=== PATIENT | female | born 1960 | race African-American/Black ===

== ENCOUNTER 2017-10-29 21:07 | Emergency (ER) | payer MEDICARE, MEDICAID ==
[~2017-10-29] VITALS: Ht 172.7 cm; Wt 127.0 kg
[2017-10-30] MEDS ORDERED: KETOROLAC 60MG/2ML VIAL IM ONE
[2017-10-30 00:08] VITALS: BP 131/70
== END 2017-10-30 00:51 | disposition home or self-care (01) ==
LOC: ER 23:01
DX: M17.12 Unilateral primary osteoarthritis, left knee (principal); M72.2 Plantar fascial fibromatosis; G89.29 Other chronic pain; I10 Essential (primary) hypertension; E11.9 Type 2 diabetes mellitus without complications; J45.909 Unspecified asthma, uncomplicated
CPT/HCPCS: 96372; 99283; J1885

== ENCOUNTER 2019-03-06 07:43 | Inpatient (IN) | payer MEDICARE, MEDICAID ==
[~2019-03-06] VITALS: Ht 172.7 cm; Wt 127.9 kg
[2019-03-06 09:09] LABS: BASOPHILS % 0.6 % (0.0-2.0); EOSINOPHILS % 1.1 % (0.0-5.0); HEMATOCRIT. 29.5 % (36.0-48.0); HEMOGLOBIN. 9.4 g/dL (12.0-16.0); LYMPHOCYTES % 37.7 % (20.0-50.0); MEAN CORPUSCULAR HEMOGLOBIN 25.1 pg (28.0-32.0); MEAN CORPUSCULAR VOLUME 78.6 fL (81.0-99.0); MEAN PLATELET VOLUME 6.6 fl (7.4-10.4); MONOCYTES % 9.7 % (2.0-8.0); NEUTROPHILS % 50.9 % (40.0-76.0); PLATELET 467 x1000/uL (130-400); RED BLOOD CELL COUNT 3.76 mill/uL (4.2-5.4); RED CELL DISTRIBUTION WIDTH 18.7 % (11.6-14.6)
[2019-03-06 09:18] LABS: CHLORIDE 109 mEq/L (98-107); PROTHROMBIN TIME 10.7 sec (9.6-11.0)
[2019-03-06] MEDS ORDERED: BACL-141 PO (09:27)
[2019-03-06] MEDS ORDERED: HYDR-4009 MT (09:27)
[2019-03-06] MEDS ORDERED: vitamin d2 (09:27)
[2019-03-06] MEDS ORDERED: PANT40TA4 PO (09:27)
[2019-03-06] MEDS ORDERED: GABA-531 MT (09:27)
[2019-03-06] MEDS ORDERED: SITA50TA3 PO (09:27)
[2019-03-06] MEDS ORDERED: ALBU6.7H9 INH (09:27)
[2019-03-06] MEDS ORDERED: METH150T PO (09:27)
[2019-03-06] MEDS ORDERED: FLUT1AER IH (09:27)
[2019-03-06] MEDS ORDERED: APIX5TAB PO (09:27)
[2019-03-06] MEDS ORDERED: LIDO15CR11 TP (09:27)
[2019-03-06] MEDS ORDERED: ATOR10TA69 MT (09:27)
[2019-03-06] MEDS ORDERED: TELM1TAB32 MT (09:27)
[2019-03-06] MEDS ORDERED: ALPR2TAB97 PO (09:27)
[2019-03-06] MEDS ORDERED: ERGO2000 PO (09:27)
[2019-03-06] MEDS ORDERED: MAGNESIUM/ALUMINUM HYDROXIDE/SIMETHICONE 30ML UDC PO PRN (12:30)
[2019-03-06] MEDS ORDERED: IPRATROPIUM/ALBUTEROL 0.5-3(2.5)MG/3ML NEB INH PRN (12:30)
[2019-03-06] MEDS ORDERED: NA PHOS,M-B/NA PHOS,DI-BA ENEMA 118ML PR PRN (12:30)
[2019-03-06] MEDS ORDERED: ACETAMINOPHEN 325MG TABLET PO PRN (12:30)
[2019-03-06] MEDS ORDERED: ONDANSETRON HCL 4MG/2ML INJ IV PRN (12:30)
[2019-03-06] MEDS ORDERED: DIPHENHYDRAMINE 50MG/ML VIAL IV PRN (12:30)
[2019-03-06] MEDS ORDERED: CLONIDINE 0.1MG TABLET PO PRN (12:30)
[2019-03-06] MEDS ORDERED: DOCUSATE SODIUM 100MG CAPSULE PO PRN (12:30)
[2019-03-06 13:10] VITALS: BP 129/79
[2019-03-06 14:30] VITALS: BP 129/79
[2019-03-06 16:00] VITALS: BP 113/56
[2019-03-06 16:02] LABS: TOTAL IRON BINDING CAPACITY 353 ug/dL (250-450)
[2019-03-06] MEDS: OMEPRAZOLE 20MG CAPSULE EXTENDED RELEASE PO SCH ×2 (16:10→20:21)
[2019-03-06] MEDS: MORPHINE SULFATE 2 MG/ML CPJ (NOT FOR IM USE) IV PRN ×2 (16:19→20:23)
[2019-03-06] MEDS ORDERED: PNEUMOCOCCAL 23-VAL P-SAC VAC 0.5 ML IM ONE (17:15)
[2019-03-06 20:38] LABS: HEMATOCRIT 28.2 % (36.0-48.0); HEMOGLOBIN 8.9 g/dL (12.0-16.0)
[2019-03-06 20:43] LABS: CHLORIDE 107 mEq/L (98-107)
[2019-03-07] VITALS: BP 93/52
[2019-03-07] MEDS ORDERED: DEXTROSE 50% WATER 50ML SYRINGE IV PRN (00:30)
[2019-03-07] MEDS: MORPHINE SULFATE 2 MG/ML CPJ (NOT FOR IM USE) IV PRN ×3 (00:39→11:08)
[2019-03-07 00:55] LABS: HEMATOCRIT 26.9 % (36.0-48.0); HEMOGLOBIN 8.6 g/dL (12.0-16.0)
[2019-03-07 06:41] LABS: BASOPHILS % 0.4 % (0.0-2.0); EOSINOPHILS % 1.7 % (0.0-5.0); HEMATOCRIT. 28.5 % (36.0-48.0); HEMOGLOBIN. 9.2 g/dL (12.0-16.0); MEAN CORPUSCULAR HEMOGLOBIN 25.3 pg (28.0-32.0); MEAN CORPUSCULAR VOLUME 78.3 fL (81.0-99.0); MEAN PLATELET VOLUME 6.8 fl (7.4-10.4); MONOCYTES % 7.2 % (2.0-8.0); NEUTROPHILS % 43.7 % (40.0-76.0); PLATELET 476 x1000/uL (130-400); RED BLOOD CELL COUNT 3.64 mill/uL (4.2-5.4); RED CELL DISTRIBUTION WIDTH 18.5 % (11.6-14.6)
[2019-03-07 07:00] LABS: CHLORIDE 108 mEq/L (98-107)
[2019-03-07 07:34] LABS: LDL CHOLESTEROL 84 mg/dL (5-100)
[2019-03-07 07:35] LABS: HDL CHOLESTEROL 33 mg/dL (40-59)
[2019-03-07 07:36] LABS: T4 FREE 1.06 ng/dL (0.76-1.46)
[2019-03-07] MEDS: INSULIN LISPRO 100 UNITS/ML SUBCUT SCH ×4 (07:49→21:00)
[2019-03-07] MEDS: BLOOD SUGAR DIAGNOSTIC STRIP TEST SCH ×4 (07:49→21:14)
[2019-03-07 08:00] VITALS: BP 109/62
[2019-03-07] MEDS: OMEPRAZOLE 20MG CAPSULE EXTENDED RELEASE PO SCH ×2 (09:00→21:14)
[2019-03-07] MEDS ORDERED: SORBITOL 70% SOLN 30ML PO SCH ×3 (10:00→20:00)
[2019-03-07 11:05] VITALS: BP 110/67
[2019-03-07] MEDS: BISACODYL 5MG TABLET PO SCH ×2 (11:06→14:24)
[2019-03-07] MEDS: METOCLOPRAMIDE HCL 10MG/2ML VIAL IV SCH ×2 (11:07→14:23)
[2019-03-07 12:00] VITALS: BP 110/66
[2019-03-07 13:06] LABS: HEMATOCRIT 29.5 % (36.0-48.0); HEMOGLOBIN 9.3 g/dL (12.0-16.0)
[2019-03-07 16:00] VITALS: BP 143/82
[2019-03-07 20:00] VITALS: BP 111/69
[2019-03-07] MEDS ORDERED: BISACODYL 5MG TABLET PO SCH (20:00)
[2019-03-07] MEDS ORDERED: METOCLOPRAMIDE HCL 10MG/2ML VIAL IV SCH (20:00)
[2019-03-07] MEDS: LORAZEPAM 2MG/ML CPJ IV PRN (21:36)
[2019-03-08] VITALS (7 sets, daily range): BP systolic 99–141; BP diastolic 60–79
[2019-03-08] MEDS: MORPHINE SULFATE 2 MG/ML CPJ (NOT FOR IM USE) IV PRN ×3 (03:25→12:13)
[2019-03-08] MEDS: OMEPRAZOLE 20MG CAPSULE EXTENDED RELEASE PO SCH ×2 (07:40→23:18)
[2019-03-08] MEDS: INSULIN LISPRO 100 UNITS/ML SUBCUT SCH ×4 (08:10→21:00)
[2019-03-08] MEDS: BLOOD SUGAR DIAGNOSTIC STRIP TEST SCH ×4 (08:18→21:00)
[2019-03-08 09:15] LABS: CHLORIDE 95 mEq/L (98-107)
[2019-03-08 09:23] LABS: BASOPHILS % 0.6 % (0.0-2.0); EOSINOPHILS % 0.9 % (0.0-5.0); HEMATOCRIT. 32.6 % (36.0-48.0); HEMOGLOBIN. 10.3 g/dL (12.0-16.0); LYMPHOCYTES % 29.2 % (20.0-50.0); MEAN CORPUSCULAR HEMOGLOBIN 25.1 pg (28.0-32.0); MEAN CORPUSCULAR VOLUME 79.2 fL (81.0-99.0); NEUTROPHILS % 61.3 % (40.0-76.0); PLATELET 470 x1000/uL (130-400); RED BLOOD CELL COUNT 4.12 mill/uL (4.2-5.4)
[2019-03-08 09:25] LABS: LDL CHOLESTEROL 91 mg/dL (5-100)
[2019-03-08 09:28] LABS: HDL CHOLESTEROL 31 mg/dL (40-59)
[2019-03-08] MEDS ORDERED: POTASSIUM CHLORIDE 20MEQ TABLET SR PO SCH (11:45)
[2019-03-08 12:33] LABS: D-DIMER 1.31 mg/L FEU (<0.50); INR 1.7; PARTIAL THROMBOPLASTIN TIME 26.3 sec (23.4-31.0); PROTHROMBIN TIME 17.1 sec (9.6-11.0)
[2019-03-08] MEDS ORDERED: METOCLOPRAMIDE HCL 10MG/2ML VIAL IV SCH (15:00)
[2019-03-08] MEDS ORDERED: MIDAZOLAM HCL 5 MG/5 ML VIAL ONE ×2 (18:09→20:05)
[2019-03-08] MEDS ORDERED: FENTANYL CITRATE/PF 50MCG/ML 2ML VIAL ONE ×2 (18:09→20:05)
[2019-03-08] MEDS ORDERED: FENTANYL CITRATE/PF 50MCG/ML 2ML VIAL IV ONE ×2 (19:45→20:12)
[2019-03-08] MEDS ORDERED: MIDAZOLAM HCL 2 MG/2 ML VIAL IV ONE (19:50)
[2019-03-08] MEDS ORDERED: DIPHENHYDRAMINE 50MG/ML VIAL ONE ×2 (19:59→20:06)
[2019-03-08] MEDS ORDERED: PHYTONADIONE 10MG/ML AMP SUBCUT NR (20:00)
[2019-03-08] MEDS ORDERED: DIPHENHYDRAMINE 50MG/ML VIAL IV ONE (20:02)
[2019-03-08] MEDS: HYDROCORTISONE ACETATE 25MG SUPP PR SCH ×2 (22:00→23:18)
[2019-03-08] MEDS: HYDROCODONE/ACETAMINOPHEN 5/325MG TABLET PO PRN (23:25)
[2019-03-09 04:00] VITALS: BP 132/74
[2019-03-09 04:15] VITALS: BP 118/70
[2019-03-09 06:26] LABS: PROTHROMBIN TIME 10.5 sec (9.6-11.0)
[2019-03-09] MEDS: OMEPRAZOLE 20MG CAPSULE EXTENDED RELEASE PO SCH ×2 (06:41→20:37)
[2019-03-09] MEDS: HYDROCORTISONE ACETATE 25MG SUPP PR SCH ×3 (06:41→20:38)
[2019-03-09] MEDS: MORPHINE SULFATE 2 MG/ML CPJ (NOT FOR IM USE) IV PRN ×2 (06:43→17:10)
[2019-03-09 06:44] LABS: CHLORIDE 109 mEq/L (98-107)
[2019-03-09 06:51] LABS: FOLIC ACID (FOLATE) SERUM 7.5 ng/mL (>5.38)
[2019-03-09] MEDS: BLOOD SUGAR DIAGNOSTIC STRIP TEST SCH ×4 (07:03→20:38)
[2019-03-09 07:38] LABS: BASOPHILS % 0.7 % (0.0-2.0); EOSINOPHILS % 2.3 % (0.0-5.0); HEMOGLOBIN. 9.3 g/dL (12.0-16.0); LYMPHOCYTES % 35.7 % (20.0-50.0); MEAN CORPUSCULAR HEMOGLOBIN 25.4 pg (28.0-32.0); MEAN CORPUSCULAR VOLUME 79.1 fL (81.0-99.0); MONOCYTES % 7.3 % (2.0-8.0); PLATELET 496 x1000/uL (130-400); RED BLOOD CELL COUNT 3.66 mill/uL (4.2-5.4); RED CELL DISTRIBUTION WIDTH 18.3 % (11.6-14.6)
[2019-03-09 08:00] VITALS: BP 120/85
[2019-03-09] MEDS: INSULIN LISPRO 100 UNITS/ML SUBCUT SCH ×4 (08:10→20:59)
[2019-03-09] MEDS ORDERED: PHYTONADIONE 10MG/ML AMP SUBCUT NR (09:00)
[2019-03-09] MEDS ORDERED: IOHEXOL-350 100 ML BOTTLE ONE ×2 (11:26→14:08)
[2019-03-09] MEDS ORDERED: BARIUM SULFATE(VOLUMEN) 450 ML ORAL.SUSP ONE (11:26)
[2019-03-09 15:41] VITALS: BP 139/88
[2019-03-09 20:00] VITALS: BP 103/53
[2019-03-09] MEDS: GUAIFENESIN 200MG/10ML SUGAR FREE UDC PO PRN (20:37)
[2019-03-09] MEDS: LORAZEPAM 2MG/ML CPJ IV PRN (20:38)
[2019-03-09] MEDS: HYDROCODONE/ACETAMINOPHEN 5/325MG TABLET PO PRN (20:38)
[2019-03-10] VITALS: BP 107/62
[2019-03-10 04:00] VITALS: BP 112/69
[2019-03-10] MEDS: BLOOD SUGAR DIAGNOSTIC STRIP TEST SCH (05:09)
[2019-03-10] MEDS: HYDROCORTISONE ACETATE 25MG SUPP PR SCH (06:12)
[2019-03-10] MEDS: INSULIN LISPRO 100 UNITS/ML SUBCUT SCH (08:10)
[2019-03-10] MEDS: OMEPRAZOLE 20MG CAPSULE EXTENDED RELEASE PO SCH (08:27)
[2019-03-10] MEDS: GUAIFENESIN 200MG/10ML SUGAR FREE UDC PO PRN (08:34)
[2019-03-10 12:00] VITALS: BP 135/88
[2019-03-10 12:34] LABS: HEMATOCRIT 33.7 % (36.0-48.0); HEMOGLOBIN 10.6 g/dL (12.0-16.0); MEAN CORPUSCULAR HEMOGLOBIN 25.3 pg (28.0-32.0); MEAN CORPUSCULAR VOLUME 80.6 fL (81.0-99.0); PLATELET 402 x1000/uL (130-400); RED BLOOD CELL COUNT 4.18 mill/uL (4.2-5.4); RED CELL DISTRIBUTION WIDTH 18.2 % (11.6-14.6)
== END 2019-03-10 13:39 | disposition home or self-care (01) | DRG 378 ==
LOC: ER 07:43 → 7WST 12:09 → EDBEDREQ 12:10 → ENRESERV 12:12
PROVIDERS: ADMIT Internal Medicine; ATTEND Internal Medicine
PROC: 0DB68ZX Excision of Stomach, Via Natural or Artificial Opening Endoscopic, Diagnostic (ICD-10-PCS; principal; 2019-03-08)
PROC: 0DJD8ZZ Inspection of Lower Intestinal Tract, Via Natural or Artificial Opening Endoscopic (ICD-10-PCS; 2019-03-08)
DX: K29.71 Gastritis, unspecified, with bleeding (principal); R71.0 Precipitous drop in hematocrit; E66.9 Obesity, unspecified; E11.40 Type 2 diabetes mellitus with diabetic neuropathy, unspecified; K64.8 Other hemorrhoids; E78.00 Pure hypercholesterolemia, unspecified; I50.9 Heart failure, unspecified; M19.90 Unspecified osteoarthritis, unspecified site; I11.0 Hypertensive heart disease with heart failure; J45.909 Unspecified asthma, uncomplicated; E78.5 Hyperlipidemia, unspecified; K21.9 Gastro-esophageal reflux disease without esophagitis; I25.10 Atherosclerotic heart disease of native coronary artery without angina pectoris; K44.9 Diaphragmatic hernia without obstruction or gangrene; Z96.659 Presence of unspecified artificial knee joint; Z79.01 Long term (current) use of anticoagulants; Z79.51 Long term (current) use of inhaled steroids; Z86.718 Personal history of other venous thrombosis and embolism; Z79.84 Long term (current) use of oral hypoglycemic drugs; Z79.899 Other long term (current) drug therapy
CPT/HCPCS: 36415; 74177; 80048; 80061; 80076; 82270; 82607; 82728; 82746; 82962; 83540; 83550; 83735; 84439; 84443; 84484; 85014; 85018; 85027; 85379; 86850; 86900; 88305; 88312; 88313; 90732; 93005; 93306; 93970; 96374; 99152; 99153; 99285; C1893; J1200; J2060; J2250; J2270; J2765; J3010; J3430; Q9967; G0500